=== PATIENT | female | born 1985 | race African-American/Black ===

== ENCOUNTER 2016-07-12 16:27 | Inpatient (IN) | payer OTHER ==
[~2016-07-12] VITALS: Ht 160 cm; Wt 80.0 kg
[~2016-07-12 16:27] MED LIST: ALBU.5I INH; ALBU8I INH; OFLO.3%A LEFT EAR; WAL-10TA2 PO
[2016-07-12 16:29] VITALS: BP 108/58; PULSE 100; RESP 16; TEMP 99.9; O2SAT 96
--- NOTE | 2016-07-12 16:34 | PD ---
Physical Exam Time Seen by Provider: 16:32 Narrative 30 y/o female presents for evaluation of back/abdominal pain for 5 days. Endorses chills, nausea, urinary pressure. Sent by urgent care. Vital signs reviewed. Seen at triage desk. Awaiting bed placement. Data Data Last Documented VS Vital Signs Date Time Temp Pulse Resp B/P Pulse Ox O2 Delivery O2 Flow Rate FiO2 07/12/16 16:29 99.9 100 16 108/58 96 Room Air [facility] Medical Record Reviewed: Yes Supervised Visit with MEJIA: King Zavala July 12, 2016 16:34
[2016-07-12] MEDS ORDERED: SODIUM CHLOR 0.9% 1000 ML INJ 1,000 ML IV ONE (16:47)
[2016-07-12] MEDS ORDERED: MONT10TA2 PO (16:50)
[2016-07-12] MEDS ORDERED: VENTAER INH (16:50)
[2016-07-12] MEDS ORDERED: MORPHINE SULFATE 4 MG/ML INJ IV ONE (17:00)
[2016-07-12] MEDS ORDERED: ONDANSETRON HCL 4 MG/2 ML VIAL IVP ONE (17:00)
[2016-07-12] MEDS ORDERED: CIPROFLOXACIN 200 MG PREMIX 100 ML IV ONE (17:00)
[2016-07-12] MEDS ORDERED: KETOROLAC TROMETHAMINE 30 MG/ML (IVP) VIAL IV PUSH ONE (17:00)
[2016-07-12 17:02] LABS: AUTOMATED NEUTROPHIL # 10.5 TH/MM3 (1.8-7.7); BASOPHIL % 0.2 % (0.0-2.0); EOSINOPHIL % 0.3 % (0.0-4.0); HEMATOCRIT 36.8 % (35.0-46.0); HEMO FLAGS DIFF FINAL; LYMPH % 17.7 % (9.0-44.0); LYMPHOCYTE # 2.7 TH/MM3 (1.0-4.8); MEAN CELL VOLUME 97.2 FL (80.0-100.0); MEAN CORPUSCULAR HEMOGLOBIN 34.9 PG (27.0-34.0); MEAN CORPUSCULAR HGB CONC 35.9 % (32.0-36.0); MONO % 13.2 % (0.0-8.0); NEUT % 68.6 % (16.0-70.0); PLATELET COUNT 270 TH/MM3 (150-450); RED BLOOD COUNT 3.79 MIL/MM3 (4.00-5.30); RED CELL DISTRIBUTION WIDTH 12.4 % (11.6-17.2); WHITE BLOOD COUNT 15.3 TH/MM3 (4.0-11.0)
--- NOTE | 2016-07-12 17:20 | PD ---
HPI Chief Complaint: Abdominal Pain Time Seen by Provider: 17:17 Travel History International Travel<30 days: No Contact w/Intl Traveler<30days: No Traveled to known affect area: No History of Present Illness HPI 30-year-old female that presents to the ED for evaluation of left flank pain. Per patient she's had this for the past 5 days. Per patient she's been taking BC powder and Coca-Cola with minimal relief. Per patient the pain is 8 out of 10. Per patient she went to an urgent care and imaging a urinalysis and show blood in the told her to come here to rule out stone. She has not taken anything else for this. She has not seen anybody else for this. The pain does not radiate but she does state having some left abdominal discomfort. Denies any fevers chills or sweats. No chest pain or shortness of breath. No numbness , tilling, weakness. Patient states having polyuria but no dysuria. No blood in the urine. No vaginal discharge. Denies positive . PFSH Past Medical History Asthma: Yes Cerebrovascular Accident: No Diabetes: No Diminished Hearing: No Immunizations Current: No Myocardial Infarction: No LMP: : 1 Para: 1 Past Surgical History Section: Yes Social History Alcohol Use: Yes (occas. wine) Tobacco Use: Yes Substance Use: Yes (states smoke weed occas.) Allergies-Medications (Allergen,Severity, Reaction): Coded Allergies: Amoxicillin (Verified Allergy, Severe, HIVES, 07/12/16) Solu-Medrol (Verified Allergy, Severe, SHORT OF BREATH, SWELLING, 07/12/16) Reported Meds & Prescriptions Reported Meds & Active Scripts Active Reported Ventolin Hfa 18 GM Inh (Albuterol Sulfate) 90 Mcg/Act Aer 2 Puff INH Q4-6H PRN Singulair (Montelukast Sodium) 10 Mg Tab 10 Mg PO HS Review of Systems Except as stated in HPI: all other systems reviewed are Neg Physical Exam Narrative GENERAL: SKIN: Warm and dry. HEAD: Atraumatic. Normocephalic. EYES: Pupils equal and round. No scleral icterus. No injection or drainage. ENT: No nasal bleeding or discharge. Mucous membranes pink and moist. Tongue is midline. No uvula deviation. NECK: Trachea midline. No JVD. CARDIOVASCULAR: Regular rate and rhythm. No murmurs, S3, S4. RESPIRATORY: No accessory muscle use. Clear to auscultation. Breath sounds equal bilaterally. GASTROINTESTINAL: Abdomen soft, very sensitive to touch on the left CVA., nondistended. Hepatic and splenic margins not palpable. MUSCULOSKELETAL: Extremities without clubbing, cyanosis, or edema. No obvious deformities. Full range of motion of the upper and lower extremities bilaterally. 2+ pulses bilaterally. NEUROLOGICAL: Awake and alert. No obvious cranial nerve deficits. Motor grossly within normal limits. Five out of 5 muscle strength in the arms and legs. Normal speech. PSYCHIATRIC: Appropriate mood and affect; insight and judgment normal. Data Data Last Documented VS Vital Signs Date Time Temp Pulse Resp B/P Pulse Ox O2 Delivery O2 Flow Rate FiO2 07/12/16 18:08 16 07/12/16 16:29 99.9 100 108/58 96 Room Air Orders Complete Blood Count With Diff (07/12/16 16:47) Basic Metabolic Panel (Bmp) (07/12/16 16:47) Urinalysis - C+S If Indicated (07/12/16 16:47) Ed Urine Pregnancytest Poc (07/12/16 16:47) Ct Abd/Pel W/O Iv Contrast (07/12/16 16:47) Ecg Monitoring (07/12/16 16:47) Iv Access Insert/Monitor (07/12/16 16:47) Morphine Inj (Morphine Inj) (07/12/16 17:00) Ondansetron Inj (Zofran Inj) (07/12/16 17:00) Sodium Chlor 0.9% 1000 Ml Inj (Ns 1000 M (07/12/16 16:47) Ciprofloxacin 200 Mg Premix (Cipro 200 M (07/12/16 17:00) Ketorolac Inj (Toradol Inj) (07/12/16 17:00) Urine Culture (07/12/16 17:00) Admit Order (Ed Use Only) (07/12/16 18:28) Labs Laboratory Tests Test 07/12/16 07/12/16 16:50 17:00 White Blood Count 15.3 TH/MM3 Red Blood Count 3.79 MIL/MM3 Hemoglobin 13.2 GM/DL Hematocrit 36.8 % Mean Corpuscular Volume 97.2 FL Mean Corpuscular Hemoglobin 34.9 PG Mean Corpuscular Hemoglobin 35.9 % Concent Red Cell Distribution Width 12.4 % Platelet Count 270 TH/MM3 Mean Platelet Volume 7.5 FL Neutrophils (%) (Auto) 68.6 % Lymphocytes (%) (Auto) 17.7 % Monocytes (%) (Auto) 13.2 % Eosinophils (%) (Auto) 0.3 % Basophils (%) (Auto) 0.2 % Neutrophils # (Auto) 10.5 TH/MM3 Lymphocytes # (Auto) 2.7 TH/MM3 Monocytes # (Auto) 2.0 TH/MM3 Eosinophils # (Auto) 0.0 TH/MM3 Basophils # (Auto) 0.0 TH/MM3 CBC Comment DIFF FINAL Differential Comment Sodium Level 137 MEQ/L Potassium Level 3.6 MEQ/L Chloride Level 102 MEQ/L Carbon Dioxide Level 27.4 MEQ/L Anion Gap 8 MEQ/L Blood Urea Nitrogen 8 MG/DL Creatinine 0.95 MG/DL Estimat Glomerular Filtration 83 ML/MIN Rate Random Glucose 90 MG/DL Calcium Level 8.6 MG/DL Urine Color YELLOW Urine Turbidity HAZY Urine pH 6.0 Urine Specific [place] 1.015 Urine Protein 30 mg/dL Urine Glucose (UA) NEG mg/dL Urine Ketones NEG mg/dL Urine Occult Blood MOD Urine Nitrite NEG Urine Bilirubin NEG Urine Urobilinogen LESS THAN 2.0 MG/DL Urine Leukocyte Esterase LARGE Urine RBC 7 /hpf Urine WBC /hpf Urine WBC Clumps MOD Urine Amorphous Sediment RARE Urine Bacteria FEW /hpf Urine Granular Casts 14 /lpf Urine Mucus FEW /lpf Microscopic Urinalysis Comment CULTURE INDICATED MDM Medical Decision Making Medical Screen Exam Complete: Yes Emergency Medical Condition: Yes Medical Record Reviewed: Yes Interpretation(s) CBC & BMP Diagram 07/12/16 16:50 UA shows blood and signs of UTI Last Impressions Abdomen/Pelvis CT 07/12/16 1647 Signed Impressions: Service Date/Time: Tuesday, July 12, 2016 17:39 - CONCLUSION: 1. Mild stranding of fat around the right kidney. Minimal prominence of the right renal collecting system. Differential diagnosis includes pyelonephritis or possibly some post obstructive changes. No ureteral calculus seen on current exam. Nonobstructing left renal calculus. Anson Alejandre MD Differential Diagnosis Kidney stone versus pylonephritis versus cystitis Narrative Course 30-year-old female that presents to the ED for evaluation of left flank pain. Patient was properly examined and was found to have signs and symptoms concerning for pylonephritis versus kidney stone. Labs and imaging ordered. Patient was given IV pain medications and fluids as well as IV Cipro. Labs and imaging show what appears to be acute nephritis with sepsis. I recommend admission. My attending Dr. Fulton was made aware of all findings and agrees with this plan. Patient was admitted to the residents who agreed to admission. Sepsis Criteria SIRS Criteria (2 or more): Heart rate over 90, WBC > 82819, < 4000 or > 10% bands Sepsis Criteria (SIRS+source): Infect source susp/known Criteria Outcome: Meets sepsis criteria Diagnosis Primary Impression: Pyelonephritis Admitting Information Admitting Physician Requests: Observation Brant Hidalgo July 12, 2016 17:20
[2016-07-12 17:24] LABS: BICARBONATE 27.4 MEQ/L (21.0-32.0); POTASSIUM 3.6 MEQ/L (3.5-5.1)
[2016-07-12 17:41] LABS: BACTERIA, URINE FEW /hpf; BLOOD, URINE MOD (NEG); COMMENT (UR) CULTURE INDICATED; CULTURE IF INDICATED CULTURE INDICATED; GLUCOSE,URINE NEG (NEG); GRANULAR CAST, URINE 14 /lpf; KETONE, URINE NEG (NEG); MUCUS URINE FEW /lpf (OCC); NITRITE,URINE NEG (NEG); URINE COLOR YELLOW (YELLW/STRAW)
--- NOTE | 2016-07-12 17:57 | RADRPT ---
EXAM DATE/TIME: 07/12/2016 17:39 [facility] COMPARISON: No previous studies available for comparison. INDICATIONS : Abdominal pain X 5 days with nausea. ORAL CONTRAST: No oral contrast ingested. RADIATION DOSE: 7.96 CTDIvol (mGy) MEDICAL HISTORY : Asthma SURGICAL HISTORY : None. ENCOUNTER: Initial ACUITY: 4 - 6 days PAIN SCALE: 6/10 LOCATION: abdomen TECHNIQUE: Volumetric scanning of the abdomen and pelvis was performed. Using automated exposure control and ad justment of the mA and/or kV according to patient size, radiation dose was kept as low as reasonably achievable to obtain optimal diagnostic quality images. FINDINGS: Lung bases are clear. No acute findings in the liver, spleen, adrenals, or pancreas. There is a nonob structing calculus in the left kidney measuring about 3 mm. There is some stranding around the right kidney involving the perirenal fat. Consider pyelonephritis. Minimal dilatation right renal pelvis. N o definite ureteral calculus identified. No acute bony abnormality. CONCLUSION: 1. Mild stranding of fat around the right kidney. Minimal prominence of the right renal collecting sy stem. Differential diagnosis includes pyelonephritis or possibly some post obstructive changes. No ur eteral calculus seen on current exam. Nonobstructing left renal calculus. Anson Alejandre MD on July 12, 2016 at 17:48 Board Certified Radiologist. This report was verified electronically.
--- NOTE | 2016-07-12 18:42 | HHI.HP ---
HPI Service Family Medicine Primary Care Physician Unknown Admission Diagnosis acute pyelonephritis, hydronephrosis, sepsis Diagnoses: International Travel<30 Days: No Contact w/Intl Traveler<30days: No Known Affected Area: No History of Present Illness Patient is a 30-year-old female with a past medical history of asthma that presents to the [place] ED with a chief complaint of back pain and suprapubic pain of at least 5 days duration. She states that the pain began within the past 1-1.5 weeks but became very uncomfortable 5 days ago. She describes the pain as sharp, 11/10 intermittent pain that began in her right back and spread all the way to the left side of her back. She has also had sharp stomach pains. The pain has got some increasingly worse in the last 5 days such that she went to the urgent care today and was told that she had a kidney infection based on a urinalysis that was done. The urgent care practitioner was not sure if she had a kidney stone and asked her to come to the ED. He shouldn't states that she has had no appetite for the past 3 days and has been having chills. She had a low-grade fever at the urgent care and has had fever on and off at home. She has a PCP but is not sure what her name is because she has only seen her once and that was 6 months ago. (Gela Hernandez MD R1) Review of Systems Constitutional: COMPLAINS OF: Fatigue, Fever, Chills Eyes: DENIES: Blurred vision, Vision loss Ears, nose, mouth, throat: COMPLAINS OF: Throat pain (1 week before back pain started, resolved), DENIES: Running Nose Respiratory: DENIES: Cough, Shortness of breath Cardiovascular: DENIES: Chest pain, Palpitations, Syncope Gastrointestinal: COMPLAINS OF: Abdominal pain (mostly on left side but suprapubic ), Diarrhea (loose stools but also difficulty going ), Nausea, Vomiting (x2) Genitourinary: COMPLAINS OF: Urinary frequency (but reduced output), Dysuria ( pressure) Musculoskeletal: COMPLAINS OF: Back pain, DENIES: Muscle aches Integumentary: DENIES: Pruritus, Rash Neurologic: DENIES: Headache, Paresthesias Psychiatric: COMPLAINS OF: Anxiety, DENIES: Depression, Suicidal Ideation (Gela Hernandez MD R1) Past Family Social History Past Medical History Asthma - last asthma attack was years ago. However she uses Singulair daily when she exercises Alopecia Past Surgical History in 2009 Hernia surgery as a Reported Medications Reported Meds & Active Scripts Active Reported Ventolin Hfa 18 GM Inh (Albuterol Sulfate) 90 Mcg/Act Aer 2 Puff INH Q4-6H PRN Singulair (Montelukast Sodium) 10 Mg Tab 10 Mg PO HS (Eko,Gela Kaba MD R1) Allergies: Coded Allergies: Amoxicillin (Verified Allergy, Severe, HIVES, 07/12/16) Solu-Medrol (Verified Allergy, Severe, SHORT OF BREATH, SWELLING, 07/12/16) Family History No family history of kidney problems Mom and younger brother have HTN Social History Lives with son in [place] [employer] at private parties Have a fish and turtle Denies smoking Drinks 2-3 times per week No drug use or marijuana (Eko,Gela Kaba MD R1) Physical Exam Vital Signs Vital Signs Date Time Temp Pulse Resp B/P Pulse Ox O2 Delivery O2 Flow Rate FiO2 07/12/16 18:08 16 07/12/16 16:29 99.9 100 16 108/58 96 Room Air Physical Exam GENERAL: This is a well-nourished, well-developed patient, in no apparent distress. SKIN: No rashes, ecchymoses or lesions. Cool and dry. HEAD: Atraumatic. Normocephalic. No temporal or scalp tenderness. EYES: Pupils equal round and reactive. Extraocular motions intact. No scleral icterus. No injection or drainage. ENT: Nose without bleeding, purulent drainage or septal hematoma. Erythema of the soft palate noted, no tonsillar hypertrophy or exudate. Uvula midline. Airway patent. NECK: Trachea midline. No JVD or lymphadenopathy. Supple, nontender, no meningeal signs. CARDIOVASCULAR: Regular rate and rhythm without murmurs, gallops, or rubs. RESPIRATORY: Clear to auscultation. Breath sounds equal bilaterally. No wheezes , rales, or rhonchi. GASTROINTESTINAL: Abdomen soft, tender to palpation mostly in the left lower quadrant and suprapubic area, nondistended. No hepato-splenomegaly, or palpable masses. No guarding. MUSCULOSKELETAL: Exquisitely tender to very mild palpation in the left lower back. CVA tenderness bilaterally. Extremities without clubbing, cyanosis, or edema. No joint tenderness, effusion, or edema noted. No calf tenderness. NEUROLOGICAL: Awake and alert. Cranial nerves II through XII intact. Motor and sensory grossly within normal limits. Five out of 5 muscle strength in all muscle groups. Normal speech. Laboratory Laboratory Tests Test 07/12/16 07/12/16 16:50 17:00 White Blood Count 15.3 Red Blood Count 3.79 Hemoglobin 13.2 Hematocrit 36.8 Mean Corpuscular Volume 97.2 Mean Corpuscular Hemoglobin 34.9 Mean Corpuscular Hemoglobin 35.9 Concent Red Cell Distribution Width 12.4 Platelet Count 270 Mean Platelet Volume 7.5 Neutrophils (%) (Auto) 68.6 Lymphocytes (%) (Auto) 17.7 Monocytes (%) (Auto) 13.2 Eosinophils (%) (Auto) 0.3 Basophils (%) (Auto) 0.2 Neutrophils # (Auto) 10.5 Lymphocytes # (Auto) 2.7 Monocytes # (Auto) 2.0 Eosinophils # (Auto) 0.0 Basophils # (Auto) 0.0 CBC Comment DIFF FINAL Differential Comment Sodium Level 137 Potassium Level 3.6 Chloride Level 102 Carbon Dioxide Level 27.4 Anion Gap 8 Blood Urea Nitrogen 8 Creatinine 0.95 Estimat Glomerular Filtration 83 Rate Random Glucose 90 Calcium Level 8.6 Urine Color YELLOW Urine Turbidity HAZY Urine pH 6.0 Urine Specific [place] 1.015 Urine Protein 30 Urine Glucose (UA) NEG Urine Ketones NEG Urine Occult Blood MOD Urine Nitrite NEG Urine Bilirubin NEG Urine Urobilinogen LESS THAN 2.0 Urine Leukocyte Esterase LARGE Urine RBC 7 Urine WBC Urine WBC Clumps MOD Urine Amorphous Sediment RARE Urine Bacteria FEW Urine Granular Casts 14 Urine Mucus FEW Microscopic Urinalysis Comment CULTURE INDICATED Date/Time Procedure Status Source Growth 07/12/16 17:00 Urine Culture Received Urine Clean Catch Pending (Eko,Gela Kaba MD R1) Result Diagram: 07/12/16164907/12/161649 Imaging Last Impressions Abdomen/Pelvis CT 07/12/161646 Signed Impressions: Service Date/Time: Tuesday, July 12, 2016 17:39 - CONCLUSION: 1. Mild stranding of fat around the right kidney. Minimal prominence of the right renal collecting system. Differential diagnosis includes pyelonephritis or possibly some post obstructive changes. No ureteral calculus seen on current exam. Nonobstructing left renal calculus. Anson Alejandre MD Course In the ED, CT abdomen and pelvis was performed with findings concerning for pyelonephritis. Patient received 200 mg of ciprofloxacin IV. (Gela Hernandez MD R1) Assessment and Plan Assessment and Plan 30-year-old female with past medical history of asthma presents with acute pyelonephritis confirmed by CT scan of abdomen and pelvis. She will be admitted for management with IV Ciprofloxacin and IV fluids. Code Status Full code - does not want blood products to keep her alive Discussed Condition With Seen and discussed with Dr. Szymanski (Gela Hernandez MD R1) Attending Attestation THIS CASE WAS DISCUSSED WITH THE RESIDENT PHYSICIANS. I HAVE REVIEWED THE RECORD AND AGREE WITH THE ABOVE NOTE AND PLAN OF CARE WAS DISCUSSED. I HAVE AUTHORIZED THE ORDER FOR ADMISSION TO AN IN-PATIENT STATUS. (Ricky Harkins MD) Problem List: (1) Acute pyelonephritis Status: Acute Plan: -Met severe sepsis criteria on admission with WBC 15.3, temperature 99.9F, pulse of 100 -Source of infection being pyelonephritis confirmed on CT scan -Urinalysis significant for large leukocyte esterase, moderate WBC clumps, few bacteria, moderate occult blood -Due to penicillin allergy patient received one dose of ciprofloxacin 200 mg IV in the ED -Will continue ciprofloxacin 400 mg IV every 8 hours -Normal saline at 200 mL per hour -Morphine 2 mg every 3 hours for breakthrough pain -Ketorolac 30 mg IV every 6 hours for inflammation -Percocet when necessary for pain -Tylenol when necessary for fever -Pyridium for dysuria -Zofran 4 mg IV every 6 hours when necessary for nausea vomiting (2) Asthma Status: Acute Plan: Continue Singulair and albuterol inhaler as needed (3) FEN/DVT PPX/GI PPX/Nursing Orders Status: Acute Plan: Fluids: NS @ 200 mls/hr IV Electrolytes: Will monitor and replace as needed Nutrition: Regular adult diet DVT Prophylaxis: Bilateral SCDs, Heparin subcutaneous Q8h GI Prophylaxis: None required -Vitals Q4h -Monitor I's and O's -Activity OOB ad anderson Disposition: Possibly in the next 2-3 days with resolution of fever and pain (Gela Hernandez MD R1) Physician Certification 2 Midnight Certification Type: Admission for Inpatient Services Order for Inpatient Services The services are ordered in accordance with Medicare regulations or non- Medicare payer requirements, as applicable. In the case of services not specified as inpatient-only, they are appropriately provided as inpatient services in accordance with the 2-midnight benchmark. Estimated LOS (days): 3 days is the estimated time the patient will need to remain in the hospital, assuming treatment plan goals are met and no additional complications. Post-Hospital Plan: Home (Gela Hernandez MD R1) Gela Hernandez MD R1 July 12, 2016 18:42 Ricky Harkins MD July 13, 2016 14:08
[2016-07-12] MEDS ORDERED: ALBUTEROL SULFATE 90 MCG/ACT HFA 8 GM INHALER INH PRN (18:45)
[2016-07-12] MEDS ORDERED: NALOXONE HCL 0.4 MG/ML AMP IV PRN (19:15)
[2016-07-12] MEDS ORDERED: oxyCODONE/ACETAMINOPHEN 5 MG/325 MG TAB PO PRN (19:15)
[2016-07-12] MEDS ORDERED: ACETAMINOPHEN 325 MG TAB PO PRN ×2 (19:15→20:30)
[2016-07-12] MEDS ORDERED: MORPHINE SULFATE 4 MG/ML INJ IV PUSH PRN (19:15)
[2016-07-12] MEDS ORDERED: SODIUM CHLORIDE 0.9% FLUSH 10 ML FLUSH IV FLUSH PRN ×2 (19:15→20:30)
[2016-07-12] MEDS: SODIUM CHLOR 0.9% 1000 ML INJ 1,000 ML IV SCH ×2 (20:06→21:19)
[2016-07-12 20:22] VITALS: BP 157/67; PULSE 95; RESP 16; O2SAT 98
[2016-07-12] MEDS ORDERED: PHENAZOPYRIDINE HCL 200 MG TAB PO PRN (20:30)
[2016-07-12 21:00] VITALS: BP 149/64; PULSE 95; RESP 20; TEMP 99.6; O2SAT 97
[2016-07-12] MEDS: SODIUM CHLORIDE 0.9% FLUSH 10 ML FLUSH IV FLUSH SCH (21:00)
[2016-07-12] MEDS ORDERED: SODIUM CHLORIDE 0.9% FLUSH 10 ML FLUSH IV FLUSH SCH (21:00)
[2016-07-12] MEDS: HEPARIN SODIUM - SQ 10,000 UNITS/ML VIAL SQ SCH (21:18)
[2016-07-12] MEDS: MONTELUKAST SODIUM 10 MG TAB PO SCH (21:19)
[2016-07-12] MEDS: oxyCODONE/ACETAMINOPHEN 10 MG/325 MG TAB PO PRN (21:19)
--- NOTE | 2016-07-12 23:31 | RADRPT ---
EXAM DATE/TIME: 07/12/2016 21:50 [facility] COMPARISON: No previous studies available for comparison. INDICATIONS : Flank pain. MEDICAL HISTORY : . Asthma. Anxiety. SURGICAL HISTORY : section. ENCOUNTER: Initial ACUITY: 4-6 days PAIN SCORE: 7/10 LOCATION: Bilateral flank MEASUREMENTS: RIGHT KIDNEY: 11.7 x 6.9 x 5.3 cm LEFT KIDNEY: 10.5 x 5.2 x 5.8 cm FINDINGS: RIGHT KIDNEY: Renal cortex is normal in thickness and echotexture. No stone, or mass. Mild hydronephrosis is noted LEFT KIDNEY: Renal cortex is normal in thickness and echotexture. No hydronephrosis, or mass. Small calcification upper pole left kidney BLADDER: Within normal limits given the degree of distension. Some mobile debris within the bladder. CONCLUSION: Mild hydronephrosis of the right kidney without evidence of stone in the kidney. Guillermo Quinteros MD on July 12, 2016 at 23:27 Board Certified Radiologist. This report was verified electronically.
[2016-07-13] VITALS (7 sets, daily range): BP systolic 103–127; BP diastolic 55–64; PULSE 79–94; RESP 16–18; TEMP 98.6–100.6; O2SAT 94–97
[2016-07-13] MEDS: ONDANSETRON HCL 4 MG/2 ML VIAL IV PRN ×2 (00:22→12:53)
[2016-07-13] MEDS: KETOROLAC TROMETHAMINE 30 MG/ML (IVP) VIAL IVP PRN (00:23)
[2016-07-13] MEDS: CIPROFLOXACIN 400 MG PREMIX 200 ML IV SCH ×3 (00:23→16:35)
[2016-07-13] MEDS ORDERED: NALOXONE HCL 0.4 MG/ML AMP IV PRN (02:30)
[2016-07-13] MEDS ORDERED: METOCLOPRAMIDE HCL 10 MG/2 ML VIAL IV PRN (02:30)
[2016-07-13] MEDS: SODIUM CHLOR 0.9% 1000 ML INJ 1,000 ML IV SCH ×4 (06:11→20:15)
[2016-07-13] MEDS: HEPARIN SODIUM - SQ 10,000 UNITS/ML VIAL SQ SCH ×3 (06:11→20:13)
[2016-07-13] MEDS: oxyCODONE/ACETAMINOPHEN 10 MG/325 MG TAB PO PRN ×2 (06:11→16:38)
--- NOTE | 2016-07-13 08:25 | HHI.FPPN ---
Subjective Remarks FM Attending Note: Patient seen and examined. S: Chart and all resident physician notes reviewed. In summary this is a 30 year old female who was admitted with an admission diagnosis of Acute Pyelonephritis, Hydronephrosis,Sepsis. This patient gives a history of back and suprapubic pain over the last 5 days. The pain initially was on the right flank area that then spread to the left. The pain on the left side radiated down to the groin. The right flank pain continued. The patient has noted improvement of the left flank pain since admission. She has had nausea and vomiting times several episodes during the night. Her medication is helping with the pain but not totally eliminating it. The patient did note chills and fever prior to admission. Objective Vitals Vital Signs Date Time Temp Pulse Resp B/P Pulse Ox O2 Delivery O2 Flow Rate FiO2 07/13/16 04:00 98.8 07/13/16 00:00 98.7 90 18 127/64 95 07/12/16 21:00 99.6 95 20 149/64 97 07/12/16 20:22 95 16 157/67 98 Room Air 07/12/16 18:08 16 07/12/16 16:29 99.9 100 16 108/58 96 Room Air I/O 07/12/16 07/12/16 07/12/16 07/13/16 07/13/16 07/13/16 07:00 15:00 23:00 07:00 15:00 23:00 Intake Total 120 ml 1797 ml Output Total 100 ml 0 ml Balance 20 ml 1797 ml Intake Oral 120 ml 240 ml IV Total 1557 ml Output Urine Total 100 ml 0 ml # Voids 0 # Bowel Movements 0 0 Result Diagram: 07/12/16 1650 07/12/16 1650 Other Results Item Value Date Time Urine Specific [place] 1.015 07/12/16 1700 Urine Occult Blood MOD H 07/12/16 1700 Urine Nitrite NEG 07/12/16 1700 Urine Leukocyte Esterase LARGE H 07/12/16 1700 Urine RBC 7 /hpf H 07/12/16 1700 Urine WBC /hpf 07/12/16 1700 Urine WBC Clumps MOD H 07/12/16 1700 Imaging Last 48 hours Impressions Abdomen/Pelvis CT 07/12/16 1647 Signed Impressions: Service Date/Time: Tuesday, July 12, 2016 17:39 - CONCLUSION: 1. Mild stranding of fat around the right kidney. Minimal prominence of the right renal collecting system. Differential diagnosis includes pyelonephritis or possibly some post obstructive changes. No ureteral calculus seen on current exam. Nonobstructing left renal calculus. Anson Alejandre MD Renal Ultrasound 07/12/16 0000 Signed Impressions: Service Date/Time: Tuesday, July 12, 2016 21:50 - CONCLUSION: Mild hydronephrosis of the right kidney without evidence of stone in the kidney. Guillermo Quinteros MD Objective Remarks O. CONSTITUTIONAL/GEN: normally nourished, in NAD. EYES: conjunctiva normal, PERRLA, EOMI. ENT: Mouth and pharynx normal. NECK: thyroid midline, carotids symmetrical. LUNGS: clear A-P, respiratory effort is normal. CARDIOVASCULAR: RR without murmur or gallop. No significant edema. GI/ABD: soft without masses, without organomegaly. : R. CVA tenderness. NEURO: No focal deficits. SKIN: color normal, no rashes noted. HEME/LYMPH: no bruising, petechia or significant adenopathy MUSC: back is normal in appearance. Extremities are normal in appearance. PSYCH/MENTAL STATUS: Alert and oriented x 3. A/P Assessment and Plan 30-year-old female with past medical history of asthma presents with acute pyelonephritis confirmed by CT scan of abdomen and pelvis. She will be admitted for management with IV Rocephin and IV fluids. Problem List: (1) Acute pyelonephritis Status: Acute Plan: -Met severe sepsis criteria on admission with WBC 15.3, temperature 99.9F, pulse of 100 -Source of infection being pyelonephritis confirmed on CT scan -Urinalysis significant for large leukocyte esterase, moderate WBC clumps, few bacteria, moderate occult blood -Due to penicillin allergy patient received one dose of ciprofloxacin 200 mg IV in the ED -Will continue ciprofloxacin 400 mg IV every 8 hours -Normal saline at 200 mL per hour -Morphine 2 mg every 3 hours for breakthrough pain -Ketorolac 30 mg IV every 6 hours for inflammation -Percocet when necessary for pain -Tylenol when necessary for fever -Pyridium for dysuria -Zofran 4 mg IV every 6 hours when necessary for nausea vomiting 07/13/16 Findings of pyelonephritis probably of the right kidney. Her clinical history with transient left flank pain would suggest the possibility of having had been passed a small kidney stone but no obstructing stone is present at the current time. We'll continue IV antibiotics and IV hydration for treatment of the pyelonephritis. Will adjust antibiotic therapy pending culture and sensitivity results. (2) Asthma Status: Acute Plan: Continue Singulair and albuterol inhaler as needed (3) FEN/DVT PPX/GI PPX/Nursing Orders Status: Acute Plan: Fluids: NS @ 200 mls/hr IV Electrolytes: Will monitor and replace as needed Nutrition: Regular adult diet DVT Prophylaxis: Bilateral SCDs, Heparin subcutaneous Q8h GI Prophylaxis: None required -Vitals Q4h -Monitor I's and O's -Activity OOB ad anderson Disposition: Possibly in the next 2-3 days with resolution of fever and pain Ricky Harkins MD July 13, 2016 08:25
[2016-07-13] MEDS: SODIUM CHLORIDE 0.9% FLUSH 10 ML FLUSH IV FLUSH SCH ×2 (08:28→20:11)
[2016-07-13] MEDS: HYDROmorphone HCL PF 1 MG/ML VIAL IV PRN ×3 (09:59→20:22)
[2016-07-13 10:13] LABS: MEAN CELL VOLUME 98.7 FL (80.0-100.0); MEAN CORPUSCULAR HEMOGLOBIN 33.4 PG (27.0-34.0); MEAN CORPUSCULAR HGB CONC 33.9 % (32.0-36.0); PLATELET COUNT 239 TH/MM3 (150-450); RED BLOOD COUNT 3.64 MIL/MM3 (4.00-5.30); RED CELL DISTRIBUTION WIDTH 12.3 % (11.6-17.2); REVIEW FLAG FINAL; WHITE BLOOD COUNT 13.8 TH/MM3 (4.0-11.0)
[2016-07-13 10:28] LABS: BICARBONATE 25.6 MEQ/L (21.0-32.0); POTASSIUM 3.4 MEQ/L (3.5-5.1)
[2016-07-13] MEDS ORDERED: POTASSIUM CHLORIDE 10 MEQ CONTROLLED RELEASE TAB PO ONE (12:00)
[2016-07-13] MEDS: MONTELUKAST SODIUM 10 MG TAB PO SCH (20:13)
[2016-07-13] MEDS ORDERED: diphenhydrAMINE HCL 25 MG CAP PO ONE (21:00)
[2016-07-14 00:23] VITALS: BP 111/58; PULSE 100; RESP 18; TEMP 99.2; O2SAT 97
[2016-07-14] MEDS: CIPROFLOXACIN 400 MG PREMIX 200 ML IV SCH ×3 (00:35→17:28)
[2016-07-14] MEDS: SODIUM CHLOR 0.9% 1000 ML INJ 1,000 ML IV SCH ×5 (00:36→19:54)
[2016-07-14] MEDS: oxyCODONE/ACETAMINOPHEN 10 MG/325 MG TAB PO PRN ×3 (02:05→17:29)
[2016-07-14] MEDS: HEPARIN SODIUM - SQ 10,000 UNITS/ML VIAL SQ SCH ×3 (04:41→19:53)
[2016-07-14] MEDS: HYDROmorphone HCL PF 1 MG/ML VIAL IV PRN ×5 (05:08→22:58)
[2016-07-14 05:35] LABS: HEMATOCRIT 32.4 % (35.0-46.0); MEAN CELL VOLUME 98.9 FL (80.0-100.0); MEAN CORPUSCULAR HEMOGLOBIN 32.6 PG (27.0-34.0); PLATELET COUNT 224 TH/MM3 (150-450); RED BLOOD COUNT 3.27 MIL/MM3 (4.00-5.30); RED CELL DISTRIBUTION WIDTH 12.3 % (11.6-17.2); REVIEW FLAG FINAL; WHITE BLOOD COUNT 14.3 TH/MM3 (4.0-11.0)
[2016-07-14 05:46] LABS: BICARBONATE 27.6 MEQ/L (21.0-32.0); POTASSIUM 3.5 MEQ/L (3.5-5.1)
[2016-07-14 08:00] VITALS: BP 120/67; PULSE 82; RESP 17; TEMP 96.8; O2SAT 97
[2016-07-14] MEDS ORDERED: ACETAMINOPHEN 325 MG TAB PO PRN (08:15)
--- NOTE | 2016-07-14 08:18 | HHI.FPPN ---
Subjective Remarks Patient seen and examined this morning. Afebrile vital signs stable. She continues to complain of pain in her right side, but reports that her left- sided pain has resolved. She is now also complaining of an itch that improves with Benadryl. She is also complaining of a headache behind her right eye. Suggested taking Tylenol for headache and she agrees with trying this. Informed her that we're still waiting on the sensitivities of the cultures, and will adjust antibiotics accordingly. Endorses: Right-sided CVA tenderness, headache, itching Denies: Fever, chills, nausea, vomiting, shortness of breath, chest pain, abdominal pain, calf pain (Baljinder Szymanski MD R2) Objective Vitals Vital Signs Date Time Temp Pulse Resp B/P Pulse Ox O2 Delivery O2 Flow Rate FiO2 07/14/16 05:38 18 07/14/16 03:05 18 07/14/16 00:23 99.2 100 18 111/58 97 07/13/16 20:00 99.7 79 18 118/64 95 07/13/16 17:28 94 21 07/13/16 16:00 100.2 94 18 123/64 96 07/13/16 12:00 100.6 86 16 103/55 96 I/O 07/13/16 07/13/16 07/13/16 07/14/16 07/14/16 07/14/16 06:59 14:59 22:59 06:59 14:59 22:59 Intake Total 1797 ml 1950 ml 2085 ml 1480 ml Output Total 0 ml 350 ml 680 ml 400 ml Balance 1797 ml 1600 ml 1405 ml 1080 ml Intake Oral 240 ml 450 ml 360 ml 280 ml IV Total 1557 ml 1500 ml 1725 ml 1200 ml Output Urine Total 0 ml 350 ml 680 ml 400 ml # Bowel Movements 0 0 (Baljinder Szymanski MD R2) Result Diagram: 07/14/16 0442 07/14/16 0442 Imaging Last Impressions Abdomen/Pelvis CT 07/12/16 1647 Signed Impressions: Service Date/Time: Tuesday, July 12, 2016 17:39 - CONCLUSION: 1. Mild stranding of fat around the right kidney. Minimal prominence of the right renal collecting system. Differential diagnosis includes pyelonephritis or possibly some post obstructive changes. No ureteral calculus seen on current exam. Nonobstructing left renal calculus. Anson Alejandre MD Renal Ultrasound 07/12/16 0000 Signed Impressions: Service Date/Time: Tuesday, July 12, 2016 21:50 - CONCLUSION: Mild hydronephrosis of the right kidney without evidence of stone in the kidney. Guillermo Quinteros MD Objective Remarks O. CONSTITUTIONAL/GEN: normally nourished, in NAD. EYES: conjunctiva normal, PERRLA, EOMI. ENT: Mouth and pharynx normal. NECK: thyroid midline, carotids symmetrical. LUNGS: clear A-P, respiratory effort is normal. CARDIOVASCULAR: RR without murmur or gallop. No significant edema. GI/ABD: soft without masses, without organomegaly. : R. CVA tenderness. NEURO: No focal deficits. SKIN: color normal, no rashes noted. HEME/LYMPH: no bruising, petechia or significant adenopathy MUSC: back is normal in appearance. Extremities are normal in appearance. PSYCH/MENTAL STATUS: Alert and oriented x 3. Medications and IVs Current Medications Medications (Trade) Dose Ordered Sig/Yolanda Route Start Time Stop Time Status Last Admin (Proair Hfa Inh) 2 puff Q4HR PRN INH 07/12/16 18:45 Montelukast Sodium 10 mg 10 mg HS PO 07/12/16 21:00 07/13/16 20:13 (NS 1000 ml Inj) 1,000 ml @ 200 mls/hr Q5H IV 07/12/16 19:05 07/14/16 05:09 (Percocet 5-325 Mg) 1 tab Q6H PRN PO 07/12/16 19:15 Oxycodone/ Acetaminophen 1 tab 1 tab Q6H PRN PO 07/12/16 19:15 07/14/16 02:05 (Cipro 400 Mg Premix) 200 ml @ 200 mls/hr Q8H IV 07/13/16 01:00 07/14/16 00:35 (NS Flush) 2 ml UNSCH PRN IV FLUSH 07/12/16 20:30 (NS Flush) 2 ml BID IV FLUSH 07/12/16 21:00 (Tylenol) 650 mg Q6H PRN PO 07/12/16 20:30 (Pyridium) 200 mg TID PRN PO 07/12/16 20:30 07/14/16 20:29 (Toradol Inj) 30 mg Q6H PRN IVP 07/12/16 20:30 07/17/16 20:29 07/13/16 00:23 (Zofran Inj) 4 mg Q6H PRN IV 07/12/16 20:30 07/13/16 12:53 (Heparin Inj) 5,000 units Q8H SQ 07/12/16 21:00 07/13/16 20:13 (Reglan Inj) 10 mg Q6H PRN IV 07/13/16 02:30 07/13/16 02:47 (Dilaudid Pf Inj) 1 mg Q3H PRN IV 07/13/16 02:30 07/14/16 05:08 (Narcan Inj) 0.4 mg UNSCH PRN IV 07/13/16 02:30 (Baljinder Szymanski MD R2) A/P Assessment and Plan 30-year-old female with past medical history of asthma presents with acute pyelonephritis confirmed by CT scan of abdomen and pelvis. She will be admitted for management with IV antibiotics and IV fluids. wdw: Dr. Harkins Discharge Planning Upon improvement of pyelonephritis (Baljinder Szymanski MD R2) Attending Attestation Case reviewed and discussed with the resident team. Agree with plan of care as discussed with me and documented in the resident note. (Ricky Harkins MD) Problem List: (1) Acute pyelonephritis Status: Acute Plan: -Source of infection being pyelonephritis confirmed on CT scan -History significant for possible transient kidney stone that has been passed, no obstructive kidney stone seen on CT, or ultrasound -Urinalysis significant for large leukocyte esterase, moderate WBC clumps, few bacteria, moderate occult blood -Will continue ciprofloxacin 400 mg IV every 8 hours -Normal saline at 200 mL per hour -Morphine 2 mg every 3 hours for breakthrough pain -Ketorolac 30 mg IV every 6 hours for inflammation -Percocet when necessary for pain -Benadryl when necessary itching -Tylenol when necessary for fever and headache -Pyridium for dysuria -Zofran 4 mg IV every 6 hours when necessary for nausea vomiting -Urine cultures: Gram-negative rods, sensitivities pending (2) Asthma Status: Acute Plan: Continue Singulair and albuterol inhaler as needed (3) FEN/DVT PPX/GI PPX/Nursing Orders Status: Acute Plan: Fluids: NS @ 200 mls/hr IV Electrolytes: Will monitor and replace as needed Nutrition: Regular adult diet DVT Prophylaxis: Bilateral SCDs, Heparin subcutaneous Q8h GI Prophylaxis: None required -Vitals Q4h -Monitor I's and O's -Activity OOB ad anderson Disposition: Possibly in the next 2-3 days with resolution of fever and pain (Baljinder Szymanski MD R2) Baljinder Szymanski MD R2 July 14, 2016 08:18 Ricky Harkins MD July 15, 2016 12:16
[2016-07-14] MEDS: SODIUM CHLORIDE 0.9% FLUSH 10 ML FLUSH IV FLUSH SCH ×2 (08:49→19:52)
[2016-07-14] MEDS: diphenhydrAMINE HCL 25 MG CAP PO PRN ×3 (08:49→19:55)
[2016-07-14 12:00] VITALS: BP 115/57; PULSE 73; RESP 19; TEMP 98.1; O2SAT 99
[2016-07-14 16:00] VITALS: BP 124/75; PULSE 86; RESP 19; TEMP 98.5; O2SAT 95
[2016-07-14] MEDS: MONTELUKAST SODIUM 10 MG TAB PO SCH (19:54)
[2016-07-14 20:00] VITALS: BP 125/82; PULSE 80; RESP 18; TEMP 98.2; O2SAT 98
[2016-07-15] VITALS: BP 121/62; PULSE 78; RESP 16; TEMP 98.8; O2SAT 97
[2016-07-15] MEDS: CIPROFLOXACIN 400 MG PREMIX 200 ML IV SCH ×2 (01:13→08:24)
[2016-07-15] MEDS: SODIUM CHLOR 0.9% 1000 ML INJ 1,000 ML IV SCH ×2 (01:13→08:24)
[2016-07-15] MEDS: oxyCODONE/ACETAMINOPHEN 10 MG/325 MG TAB PO PRN ×2 (01:16→08:26)
[2016-07-15] MEDS: HYDROmorphone HCL PF 1 MG/ML VIAL IV PRN (04:40)
[2016-07-15] MEDS: HEPARIN SODIUM - SQ 10,000 UNITS/ML VIAL SQ SCH (04:43)
[2016-07-15 06:53] LABS: MEAN CELL VOLUME 98.4 FL (80.0-100.0); MEAN CORPUSCULAR HEMOGLOBIN 34.2 PG (27.0-34.0); MEAN CORPUSCULAR HGB CONC 34.8 % (32.0-36.0); PLATELET COUNT 237 TH/MM3 (150-450); RED BLOOD COUNT 2.85 MIL/MM3 (4.00-5.30); RED CELL DISTRIBUTION WIDTH 12.4 % (11.6-17.2); REVIEW FLAG FINAL; WHITE BLOOD COUNT 7.9 TH/MM3 (4.0-11.0)
--- NOTE | 2016-07-15 07:03 | HHI.DCPOC ---
Discharge Care Plan Diagnosis: (1) Acute pyelonephritis Goals to Promote Your Health * To prevent worsening of your condition and complications * To maintain your health at the optimal level Directions to Meet Your Goals Take your medications as prescribed Follow your dietary instruction Follow activity as directed Keep your appointments as scheduled Take your immunizations and boosters as scheduled If your symptoms worsen call your PCP, if no PCP go to Urgent Care Center or Emergency Room Smoking is Dangerous to Your Health. Avoid second hand smoke Call the 24-hour hour crisis hotline for domestic abuse at Gela Hernandez MD R1 July 15, 2016 07:03
[2016-07-15 07:08] LABS: BICARBONATE 27.2 MEQ/L (21.0-32.0); POTASSIUM 3.4 MEQ/L (3.5-5.1)
[2016-07-15] MEDS ORDERED: OXYC1TAB36 PO (07:38)
[2016-07-15 08:00] VITALS: BP 132/83; PULSE 75; RESP 18; TEMP 97; O2SAT 98
[2016-07-15] MEDS: SODIUM CHLORIDE 0.9% FLUSH 10 ML FLUSH IV FLUSH SCH (08:26)
--- NOTE | 2016-07-15 09:00 | HHI.FPPN ---
Subjective Remarks Patient is doing better this morning. She sees her left back pain has resolved, but she still has some left suprapubic pain and right back pain. She also has pounding headache on the right side of her head behind her eye. She does not have a history of migraines. (Gela Hernandez MD R1) Objective Vitals Vital Signs Date Time Temp Pulse Resp B/P Pulse Ox O2 Delivery O2 Flow Rate FiO2 07/15/16 08:00 97.0 75 18 132/83 98 07/15/16 05:10 18 07/15/16 02:16 18 07/15/16 00:00 98.8 78 16 121/62 97 07/14/16 20:00 98.2 80 18 125/82 98 07/14/16 16:00 98.5 86 19 124/75 95 07/14/16 12:00 98.1 73 19 115/57 99 I/O 07/14/16 07/14/16 07/14/16 07/15/16 07/15/16 07/15/16 07:00 15:00 23:00 07:00 15:00 23:00 Intake Total 1480 ml 2252 ml 1649 ml 2060 ml Output Total 400 ml 625 ml 700 ml 500 ml Balance 1080 ml 1627 ml 949 ml 1560 ml Intake Oral 280 ml 600 ml 380 ml 360 ml IV Total 1200 ml 1652 ml 1269 ml 1700 ml Output Urine Total 400 ml 625 ml 700 ml 500 ml # Bowel Movements 0 0 (Gela Hernandez MD R1) Result Diagram: 07/15/1646 07/15/16 0546 Objective Remarks O. CONSTITUTIONAL/GEN: normally nourished, in NAD. EYES: conjunctiva normal, PERRLA, EOMI. ENT: Mouth and pharynx normal. NECK: thyroid midline, carotids symmetrical. LUNGS: clear A-P, increased work of breathing CARDIOVASCULAR: RR without murmur or gallop. No significant edema. GI/ABD: soft without masses, without organomegaly. : R. CVA tenderness to mild palpation NEURO: No focal deficits. SKIN: color normal, no rashes noted. HEME/LYMPH: no bruising, petechia or significant adenopathy MUSC: back is normal in appearance. Extremities are normal in appearance. PSYCH/MENTAL STATUS: Alert and oriented x 3. (Eko,Gela U MD R1) A/P Assessment and Plan 30-year-old female with past medical history of asthma presented with acute pyelonephritis confirmed by CT scan of abdomen and pelvis. Renal ultrasound showed mild hydronephrosis of the right kidney without evidence of stone in the kidney. She was admitted for management with IV ciprofloxacin and IV fluids. Patient improved during her hospital stay and was discharged home with oral ciprofloxacin to complete a 14 day course of antibiotic treatment. wdw: Dr. Harkins Discharge Planning Plan to discharge home today due to resolution of fever and reduction in pain ( Gela Hernandez MD R1) Attending Attestation Case reviewed and discussed with the resident team. Agree with plan of care as discussed with me and documented in the resident note. (Ricky Harkins MD) Problem List: (1) Acute pyelonephritis Status: Acute Plan: -Source of infection being pyelonephritis confirmed on CT scan -History significant for possible transient kidney stone that has been passed, no obstructive kidney stone seen on CT, or ultrasound -Urinalysis significant for large leukocyte esterase, moderate WBC clumps, few bacteria, moderate occult blood -Will continue ciprofloxacin 400 mg IV every 8 hours - has received an equivalent of 3 days of treatment -Discharge with oral ciprofloxacin 250 mg by mouth twice a day for 11 more days -Normal saline at 120 mL per hour -Dilaudid 1 mg IV every 3 hours for breakthrough pain - may be possible cause of headache. Will discontinue today -Ketorolac 30 mg IV every 6 hours for inflammation -Percocet when necessary for pain -Benadryl when necessary itching -Tylenol when necessary for fever and headache -Pyridium for dysuria -Reglan 10 mg IV every 6 hours when necessary for nausea vomiting -Urine cultures: Escherichia coli, pansensitive (2) Asthma Status: Acute Plan: Continue Singulair and albuterol inhaler as needed (3) FEN/DVT PPX/GI PPX/Nursing Orders Status: Acute Plan: Fluids: NS @ 120 mls/hr IV Electrolytes: Will monitor and replace as needed Nutrition: Regular adult diet DVT Prophylaxis: Bilateral SCDs, Heparin subcutaneous Q8h GI Prophylaxis: None required -Vitals Q4h -Monitor I's and O's -Activity OOB ad anderson (Gela Hernandez MD R1) Gela Hernandez MD R1 July 15, 2016 09:00 Ricky Harkins MD July 15, 2016 12:33
--- NOTE | 2016-07-15 09:02 | HHI.DS ---
Discharge Summary Admission Date July 12, 2016 at 18:29 Discharge Date: July 15, 2016 Admitting Diagnosis acute pyelonephritis, hydronephrosis, sepsis (1) Acute pyelonephritis Diagnosis: Principal Plan: (2) Asthma Diagnosis: Secondary Brief History Patient is a 30-year-old female with a past medical history of asthma that presents to the [facility] ED with a chief complaint of back pain and suprapubic pain of at least 5 days duration. She states that the pain began within the past 1-1.5 weeks but became very uncomfortable 5 days ago. She describes the pain as sharp, 11/10 intermittent pain that began in her right back and spread all the way to the left side of her back. She has also had sharp stomach pains. The pain has got some increasingly worse in the last 5 days such that she went to the urgent care today and was told that she had a kidney infection based on a urinalysis that was done. The urgent care practitioner was not sure if she had a kidney stone and asked her to come to the ED. He shouldn't states that she has had no appetite for the past 3 days and has been having chills. She had a low-grade fever at the urgent care and has had fever on and off at home. She has a PCP but is not sure what her name is because she has only seen her once and that was 6 months ago. CBC/BMP: 07/15/16 0546 07/15/16 0546 Significant Findings Laboratory Tests Test 07/12/16 07/12/16 07/13/16 07/13/16 16:50 17:00 09:15 09:40 Estimat Glomerular Filtration 83 ML/MIN (>89) Rate White Blood Count 15.3 TH/MM3 13.8 TH/MM3 (4.0-11.0) (4.0-11.0) Red Blood Count 3.79 MIL/MM3 3.64 MIL/MM3 (4.00-5.30) (4.00-5.30) Mean Corpuscular Hemoglobin 34.9 PG (27.0-34.0) Monocytes (%) (Auto) 13.2 % (0.0-8.0) Neutrophils # (Auto) 10.5 TH/MM3 (1.8-7.7) Monocytes # (Auto) 2.0 TH/MM3 (0-0.9) Urine Turbidity HAZY (CLEAR) Urine Protein 30 mg/dL (NEG-TRACE) Urine Occult Blood MOD (NEG) Urine Leukocyte Esterase LARGE (NEG) Urine RBC 7 /hpf (0-3) Urine WBC Clumps MOD (NONE) Urine Bacteria FEW /hpf (NONE) Urine Mucus FEW /lpf (OCC) Potassium Level 3.4 MEQ/L (3.5-5.1) Blood Urea Nitrogen 4 MG/DL (7-18) Calcium Level 7.9 MG/DL (8.5-10.1) Test 07/14/16 07/15/16 04:42 05:46 White Blood Count 14.3 TH/MM3 (4.0-11.0) Red Blood Count 3.27 MIL/MM3 2.85 MIL/MM3 (4.00-5.30) (4.00-5.30) Hemoglobin 10.7 GM/DL 9.7 GM/DL (11.6-15.3) (11.6-15.3) Hematocrit 32.4 % 28.0 % (35.0-46.0) (35.0-46.0) Blood Urea Nitrogen 2 MG/DL (7-18) 1 MG/DL (7-18) Calcium Level 7.6 MG/DL 7.8 MG/DL (8.5-10.1) (8.5-10.1) Mean Corpuscular Hemoglobin 34.2 PG (27.0-34.0) Potassium Level 3.4 MEQ/L (3.5-5.1) Imaging Last 72 hours Impressions Abdomen/Pelvis CT 07/12/16 5987 Signed Impressions: Service Date/Time: Tuesday, July 12, 2016 17:39 - CONCLUSION: 1. Mild stranding of fat around the right kidney. Minimal prominence of the right renal collecting system. Differential diagnosis includes pyelonephritis or possibly some post obstructive changes. No ureteral calculus seen on current exam. Nonobstructing left renal calculus. Anson Alejandre MD PE at Discharge O. CONSTITUTIONAL/GEN: normally nourished, in NAD. EYES: conjunctiva normal, PERRLA, EOMI. ENT: Mouth and pharynx normal. NECK: thyroid midline, carotids symmetrical. LUNGS: clear A-P, respiratory effort is normal. CARDIOVASCULAR: RR without murmur or gallop. No significant edema. GI/ABD: soft without masses, without organomegaly. : R. CVA tenderness. NEURO: No focal deficits. SKIN: color normal, no rashes noted. HEME/LYMPH: no bruising, petechia or significant adenopathy MUSC: back is normal in appearance. Extremities are normal in appearance. PSYCH/MENTAL STATUS: Alert and oriented x 3. Hospital Course 30-year-old female with past medical history of asthma presented with acute pyelonephritis confirmed by CT scan of abdomen and pelvis. Renal ultrasound showed mild hydronephrosis of the right kidney without evidence of stone in the kidney. She was admitted for management with IV ciprofloxacin and IV fluids. Patient improved during her hospital stay and was discharged home with oral ciprofloxacin to complete a 14 day course of antibiotic treatment. Patient is to repeat urinalysis in 1 week and follow up with her PCP in one week. Pt Condition on Discharge: Stable Discharge Disposition: Discharge Home Discharge Instructions DIET: Follow Instructions for: As Tolerated, No Restrictions Activities you can perform: Regular-No Restrictions Follow up Referrals: PCP Follow-up - 1 Week New Orders: URINALYSIS - 1 Week New Medications: Ciprofloxacin (Cipro) 250 Mg Tab 250 MG PO BID Infection #22 Ref 0 TAB Oxycodone-Acetaminophen (Oxycodone-Acetaminophen) 10-325 mg Tab 1 TAB PO Q6H PRN PAIN SCALE 6 TO 10 #20 TAB Continued Medications: Albuterol 18 GM Inh (Ventolin Hfa 18 GM Inh) 90 Mcg/Act Aer 2 PUFF INH Q4-6H PRN SHORTNESS OF BREATH #0 Ref 0 INHALER Montelukast (Singulair) 10 Mg Tab 10 MG PO HS #0 Ref 0 TAB Gela Hernandez MD R1 July 15, 2016 09:02
[2016-07-15] MEDS: KETOROLAC TROMETHAMINE 30 MG/ML (IVP) VIAL IVP PRN (09:55)
[2016-07-15] MEDS ORDERED: POTASSIUM CHLORIDE 10 MEQ CONTROLLED RELEASE TAB PO ONE (10:15)
[2016-07-15] MEDS ORDERED: CIPR250T52 PO (10:17)
[2016-07-15 11:22] VITALS: RESP 16
== END 2016-07-15 13:15 | disposition home or self-care (01) | DRG 690 ==
LOC: NEPE 16:27 → OBSVTOIN 18:29 → NEDA 18:29 → N07A 20:40
PROVIDERS: ADMIT Family Medicine; ATTEND Family Medicine
DX: N10 Acute pyelonephritis (principal); B96.20 Unspecified Escherichia coli [E. coli] as the cause of diseases classified elsewhere; J45.909 Unspecified asthma, uncomplicated; Z88.0 Allergy status to penicillin; R51 Headache
CPT/HCPCS: 74176; 76775; 80048; 81001; 84703; 85025; 85027; 87040; 87077; 87086; 87186; 96374; 96375; J0744; J1170; J1644; J1885; J2405; J2765; J7030

== ENCOUNTER 2017-03-07 22:59 | Emergency (ER) | payer OTHER ==
[~2017-03-07] VITALS: Ht 160 cm; Wt 80.5 kg
[~2017-03-07 22:59] MED LIST changes: -ALBU.5I INH; -ALBU8I INH; +CIPR250T52 PO; +MONT10TA2 PO; -OFLO.3%A LEFT EAR; +OXYC1TAB36 PO; +VENTAER INH; -WAL-10TA2 PO
[2017-03-07 23:06] VITALS: BP 181/92; PULSE 95; RESP 28; TEMP 97.7; O2SAT 97
[2017-03-07] MEDS ORDERED: ALBU.5I NEB (23:06)
[2017-03-07 23:23] VITALS: RESP 28; O2SAT 97
[2017-03-07] MEDS: RESP: ALBUTEROL 2.5 MG/IPRATROPIUM 0.5 MG NEB (SCH) INH ×3 (23:30→23:51)
[2017-03-07] MEDS ORDERED: SODIUM CHLORIDE 0.9% FLUSH 10 ML FLUSH IVF PRN (23:30)
[2017-03-07 23:44] LABS: AUTOMATED NEUTROPHIL # 2.6 TH/MM3 (1.8-7.7); BASOPHIL # 0.1 TH/MM3 (0-0.2); BASOPHIL % 0.6 % (0.0-2.0); EOSINOPHIL # 0.8 TH/MM3 (0-0.4); EOSINOPHIL % 9.5 % (0.0-4.0); HEMATOCRIT 40.4 % (35.0-46.0); HEMOGLOBIN 13.4 GM/DL (11.6-15.3); LYMPHOCYTE # 4.4 TH/MM3 (1.0-4.8); MEAN CELL VOLUME 97.9 FL (80.0-100.0); MEAN CORPUSCULAR HEMOGLOBIN 32.6 PG (27.0-34.0); MEAN CORPUSCULAR HGB CONC 33.3 % (32.0-36.0); MEAN PLATELET VOLUME 7.1 FL (7.0-11.0); MONO % 8.4 % (0.0-8.0); MONOCYTE # 0.7 TH/MM3 (0-0.9); NEUT % 30.5 % (16.0-70.0); PLATELET COUNT 353 TH/MM3 (150-450); RED BLOOD COUNT 4.13 MIL/MM3 (4.00-5.30); RED CELL DISTRIBUTION WIDTH 11.8 % (11.6-17.2); WHITE BLOOD COUNT 8.6 TH/MM3 (4.0-11.0)
[2017-03-07] MEDS ORDERED: predniSONE 50 MG TAB PO ONE (23:45)
[2017-03-07 23:52] LABS: CALCIUM 8.5 MG/DL (8.5-10.1)
[2017-03-07 23:53] LABS: BICARBONATE 28.2 MEQ/L (21.0-32.0); MAGNESIUM 2.1 MG/DL (1.5-2.5)
[2017-03-07 23:56] LABS: CREATININE 0.82 MG/DL (0.50-1.00)
[2017-03-08] VITALS: BP 140/78; PULSE 100; RESP 20; O2SAT 95
--- NOTE | 2017-03-08 00:01 | RADRPT ---
EXAM DATE/TIME: 03/07/2017 23:45 [facility] COMPARISON: No previous studies available for comparison. INDICATIONS : Shortness of breath. MEDICAL HISTORY : Asthma SURGICAL HISTORY : section. ENCOUNTER: Initial ACUITY: 1 day PAIN SCORE: 0/10 LOCATION: Bilateral chest FINDINGS: A single view of the chest demonstrates the lungs to be symmetrically aerated without evidence of mas s, infiltrate or effusion. The cardiomediastinal contours are unremarkable. Osseous structures are intact. CONCLUSION: 1. No acute cardiopulmonary disease. Kal Cruz MD on March 07, 2017 at 23:59 Board Certified Radiologist. This report was verified electronically.
[2017-03-08 01:00] VITALS: BP 155/90; PULSE 95; RESP 18; O2SAT 96
--- NOTE | 2017-03-08 01:01 | PD ---
HPI Chief Complaint: Respiratory Symptoms Time Seen by Provider: 23:01 Travel History International Travel<30 days: No Contact w/Intl Traveler<30days: No Traveled to known affect area: No History of Present Illness HPI 31 year-old female presents to the emergency department for exacerbation of asthma. Patient also reports she is out of her inhaler. Patient is currently not on a steroid. Patient has required previous hospitalization but no prior history of intubation. Patient's had no recent febrile illness. Cough is nonproductive. PFSH Past Medical History Arthritis: No Asthma: Yes Heart Rhythm Problems: No Cardiovascular Problems: No High Cholesterol: No Chest Pain: No Congestive Heart Failure: No COPD: No Cerebrovascular Accident: No Diabetes: No Diminished Hearing: No GERD: No Genitourinary: No Hiatal Hernia: No Kidney Stones: No Medical other: Yes (Alopecia) Musculoskeletal: No Neurologic: No Reproductive: No Respiratory: Yes (ASTHMA) Immunizations Current: No Migraines: No Myocardial Infarction: No Renal Failure: No Seizures: No Sleep Apnea: No Ulcer: No Tetanus Vaccination: Unknown Influenza Vaccination: No ?: Not LMP: 02/21/17 : 1 Para: 1 Past Surgical History Abdominal Surgery: No Cardiac Surgery: No Section: Yes Ear Surgery: No Endocrine Surgery: No Eye Surgery: No Genitourinary Surgery: No Gynecologic Surgery: Yes () Oral Surgery: No Thoracic Surgery: No Social History Alcohol Use: Yes (OCCASIONALY ) Tobacco Use: No Substance Use: No Allergies-Medications (Allergen,Severity, Reaction): Coded Allergies: amoxicillin (Unverified Allergy, Severe, HIVES, 03/07/17) methylprednisolone (Unverified Allergy, Severe, SHORT OF BREATH, SWELLING , 03/07/17) Reported Meds & Prescriptions Reported Meds & Active Scripts Active Reported Albuterol Neb (Albuterol Sulfate) 2.5 Mg/0.5 Ml Neb 2.5 Mg NEB Q6HR NEB PRN Note: The Albuterol Sulfate Inhalation Solution is concentrated and must be diluted. Read complete instructions carefully before using. Ventolin Hfa 18 GM Inh (Albuterol Sulfate) 90 Mcg/Act Aer 2 Puff INH Q4-6H PRN Singulair (Montelukast Sodium) 10 Mg Tab 10 Mg PO HS Review of Systems Except as stated in HPI: all other systems reviewed are Neg Physical Exam Narrative GENERAL: Well-developed well-nourished female in obvious respiratory distress with work of breathing SKIN: Warm and dry. HEAD: Normocephalic. EYES: No scleral icterus. No injection or drainage. NECK: Supple, trachea midline. No JVD or lymphadenopathy. CARDIOVASCULAR: Increased Regular rate and rhythm without murmurs, gallops, or rubs. RESPIRATORY: Breath sounds equal bilaterally and diminished with expiratory wheezing. No accessory muscle use. GASTROINTESTINAL: Abdomen soft, non-tender, nondistended. MUSCULOSKELETAL: No cyanosis, or edema. BACK: Nontender without obvious deformity. No CVA tenderness. Data Data Last Documented VS Vital Signs Date Time Temp Pulse Resp B/P (MAP) Pulse Ox O2 Delivery O2 Flow Rate FiO2 03/08/17 01:00 95 18 155/90 (111) 96 Room Air 03/07/17 23:06 97.7 Orders Orders Complete Blood Count With Diff (03/07/17 23:21) Basic Metabolic Panel (Bmp) (03/07/17 23:21) Magnesium (Mg) (03/07/17 23:21) Influenzae A/B Antigen (03/07/17 23:21) Iv Access Insert/Monitor (03/07/17 23:21) Ecg Monitoring (03/07/17 23:21) Oximetry (03/07/17 23:21) Oxygen Administration (03/07/17 23:21) Chest, Single Ap (03/07/17 23:21) Sodium Chloride 0.9% Flush (Ns Flush) (03/07/17 23:30) Albuterol-Ipratropium Neb (Duoneb Neb) (03/07/17 23:30) Prednisone (Deltasone) (03/07/17 23:45) Ed Discharge Order (03/08/17 01:05) Labs Laboratory Tests Test 03/07/17 23:35 White Blood Count 8.6 TH/MM3 Red Blood Count 4.13 MIL/MM3 Hemoglobin 13.4 GM/DL Hematocrit 40.4 % Mean Corpuscular Volume 97.9 FL Mean Corpuscular Hemoglobin 32.6 PG Mean Corpuscular Hemoglobin Concent 33.3 % Red Cell Distribution Width 11.8 % Platelet Count 353 TH/MM3 Mean Platelet Volume 7.1 FL Neutrophils (%) (Auto) 30.5 % Lymphocytes (%) (Auto) 51.0 % Monocytes (%) (Auto) 8.4 % Eosinophils (%) (Auto) 9.5 % Basophils (%) (Auto) 0.6 % Neutrophils # (Auto) 2.6 TH/MM3 Lymphocytes # (Auto) 4.4 TH/MM3 Monocytes # (Auto) 0.7 TH/MM3 Eosinophils # (Auto) 0.8 TH/MM3 Basophils # (Auto) 0.1 TH/MM3 CBC Comment DIFF FINAL Differential Comment Blood Urea Nitrogen 11 MG/DL Creatinine 0.82 MG/DL Random Glucose 94 MG/DL Calcium Level 8.5 MG/DL Magnesium Level 2.1 MG/DL Sodium Level 136 MEQ/L Potassium Level 3.4 MEQ/L Chloride Level 101 MEQ/L Carbon Dioxide Level 28.2 MEQ/L Anion Gap 7 MEQ/L Estimat Glomerular Filtration Rate 98 ML/MIN MDM Medical Decision Making Medical Screen Exam Complete: Yes Emergency Medical Condition: Yes Medical Record Reviewed: Yes Interpretation(s) Last Impressions Chest X-Ray 03/07/17 1415 Signed Impressions: Service Date/Time: Tuesday, March 07, 2017 23:45 - CONCLUSION: 1. No acute cardiopulmonary disease. Kal Cruz MD CBC & BMP Diagram 03/07/17 23:35 Calcium Level 8.5, Magnesium Level 2.1 Vital Signs Date Time Temp Pulse Resp B/P (MAP) Pulse Ox O2 Delivery O2 Flow Rate FiO2 03/08/17 00:00 100 20 140/78 (98) 95 Room Air 03/07/17 23:23 28 97 Room Air 03/07/17 23:23 97 Room Air 03/07/17 23:19 95 28 97 Room Air 03/07/17 23:06 97.7 95 28 181/92 (121) 97 Differential Diagnosis Exacerbation asthma, pneumonia, pneumothorax, medication refill Narrative Course Patient placed on vehicle monitor technician and continuous pulse oximetry IV access obtained specimens collected and sent for resulting patient administered DuoNeb updrafts 3 as well as prednisone 50 mg by mouth Chest x-ray reveals no lobar infiltrate or pneumothorax Lab values grossly normal range After updraft treatment patient has markedly improved breath sounds bilaterally resting comfortably Patient given IV fluids and observation At 1 AM patient is clinically markedly improved stable for outpatient management and prescription provided for medications along with refill of chronic medications. Diagnosis Primary Impression: Asthma Additional Impression: Medication refill Referrals: Primary Care Physician 3 days Patient Instructions: General Instructions Departure Forms: Tests/Procedures, Work Release Special Instructions: no work x 2 days Additional Instructions: Increase fluid hydration Follow-up with your primary care provider Return to the emergency department for any concerns or change in condition No work 2 days Take acetaminophen/Tylenol as needed for fever 100.4F or greater Med/Other Pt SpecificInfo: Prescription(s) given Scripts Montelukast (Singulair) 10 Mg Tab 10 MG PO HS, #30 TAB 0 Refills Prov: Mayra Pelayo MD 03/08/17 Albuterol 18 GM Inh (Ventolin Hfa 18 GM Inh) 90 Mcg/Act Aer 2 PUFF INH Q4-6H Y for SHORTNESS OF BREATH, #1 INHALER 0 Refills Prov: Mayra Pelayo MD 03/08/17 Prednisone (Prednisone) 20 Mg Tab 20 MG PO BID for 5 Days, #10 TAB 0 Refills Prov: Mayra Pelayo MD 03/08/17 Disposition: 01 DISCHARGE HOME Condition: Stable Mayra Pelayo MD Mar 08, 2017 01:01
[2017-03-08] MEDS ORDERED: VENTAER INH (01:08)
[2017-03-08] MEDS ORDERED: PRED20 PO (01:08)
[2017-03-08] MEDS ORDERED: MONT10TA2 PO (01:08)
== END 2017-03-08 01:26 | disposition home or self-care (01) ==
LOC: PHED 22:59
DX: J45.901 Unspecified asthma with (acute) exacerbation (principal); R05 Cough; Z76.0 Encounter for issue of repeat prescription
CPT/HCPCS: 71045; 80048; 83735; 85025; 87804; 94640; 94664; 99285; J7512